=== PATIENT | female | born 1990 | race African-American/Black ===

== ENCOUNTER 2023-08-10 12:46 | Emergency (ER) | payer BC ==
[2023-08-10 12:56] VITALS: BP 133/90; PULSE 83; RESP 18; TEMP 97.5; BMI 23.1
[2023-08-10 14:16] LABS: BASO % 0.7 % (0-2.0); EOS % 2.7 % (0-4.5); HEMATOCRIT 39.6 % (32.4-45.2); HEMOGLOBIN 13.4 GM/dL (10.7-15.3); LYMPH % 38.5 % (8-40); MCH 31.9 pg (25.7-33.7); MCHC 33.8 g/dl (32.0-36.0); MEAN CELL VOLUME 94.3 fl (80-96); MEAN PLT VOLUME 6.7 fl (7.5-11.1); MONO % 9.3 % (3.8-10.2); NEUT % 48.8 % (42.8-82.8); PLATELET COUNT 390 10^3/uL (134-434); RDW 14.5 % (11.6-15.6); WHITE BLOOD COUNT 7.3 K/mm3 (4.0-10.0)
[2023-08-10 14:38] LABS: CALCIUM 9.6 mg/dL (8.5-10.1)
[2023-08-10 14:39] LABS: ALBUMIN 3.8 g/dl (3.4-5.0); BLOOD UREA NITROGEN 11.2 mg/dL (7-18)
[2023-08-10 14:42] LABS: CREATININE 0.7 mg/dL (0.55-1.3)
[2023-08-10 14:43] LABS: BILIRUBIN,TOTAL 0.8 mg/dL (0.2-1); TOT PROT 7.8 g/dl (6.4-8.2)
== END 2023-08-10 15:42 | disposition home or self-care (01) ==
LOC: JER 12:46
DX: R07.9 Chest pain, unspecified (principal); R06.02 Shortness of breath
CPT/HCPCS: 71046-TC-FY; 80053; 82550; 84439; 84443; 84484; 84703; 85025; 85379; 93005; 93010; 99285-25